=== PATIENT | male | born 1955 | race Caucasian/White ===

== ENCOUNTER → 2019-09-23 | Day surgery (SDC) | payer BC, OTHER ==
[~2019-09-23] VITALS: Ht 195.6 cm; Wt 88.0 kg
[~2019-09-23] MED LIST: NORCO 5-325 TA1 EAC1 PO
--- NOTE | ~2019-09-23 | O ---
[facility] [place] [address] OPERATIVE REPORT Name: RAÚL ELDRIDGE Room #: [facility]..#: [id number] Admission: 09/23/19 Attend Phys: Forrest Cage MD Discharge: Date of : 53 Report #: [id number] THIS REPORT FOR: //name// CC: Cayetano Cage DATE OF SERVICE: 09/23/2019 PATIENT OF: Dr. Forrest Cgae and Dr. Cayetano Holland Jr. PREOPERATIVE DIAGNOSIS: Right inguinal hernia. POSTOPERATIVE DIAGNOSES: Right inguinal hernia with a right femoral hernia. PROCEDURE: Right inguinal hernia repair with Prolene hernia system mesh and repair of a right femoral hernia with a Bard mesh PerFix plug. SURGEON: Forrest Cage M.D. ANESTHESIA: Local IV sedation. DESCRIPTION OF PROCEDURE: The patient was brought to the operating room and placed on operative table in the supine position. Sequential compression devices were in place for DVT prophylaxis. There was no indication for preoperative antibiotics. The patient underwent IV sedation and the right inguinal area was prepped and draped in a sterile fashion. Skin and subcutaneous tissue overlying the right inguinal area was infiltrated with 0.5% Marcaine and 1% Xylocaine with epinephrine. Right inguinal skin incision was then performed using #10 scalpel blade. Hemostasis obtained using electrocautery as well as clamps and 2-0 chromic ties. Dissection was carried down through subcutaneous tissue, the external oblique fascia, which was then incised with a knife, opened with Metzenbaum scissors. The cord was then elevated and held in place with a [place] drain. Cremasteric muscle fibers were then split in the direction of their fibers using a clamp and electrocautery. There was no evidence of any indirect inguinal hernia sac. The floor was noted to be markedly weakened representing a direct inguinal hernia defect and the internal ring was markedly widened as well. An extended Prolene hernia system mesh was then inserted through the internal ring and the underlay patch was then deployed into the preperitoneal space. The floor was then tightened over the mesh using a running 2-0 Prolene two layer Shouldice repair. The overlay patch was then deployed into the inguinal canal and secured the pubic tubercle with the same running 2-0 Prolene suture. The mesh was also secured superiorly and at the connector using simple interrupted 2-0 Vicryl sutures. The mesh was then split and wrapped around the cord, secured to the inguinal ligament in 2 places with simple interrupted 2-0 Vicryl suture. The cord was then returned to the [address] [address] OPERATIVE REPORT Name: RAÚL ELDRIDGE Room #: REG [facility].#: [id number] Admission: 09/23/19 Attend Phys: Forrest Cage MD Discharge: Date of : 53 Report #: [id number] canal intact. The external oblique fascia was then closed using a running 2-0 Vicryl suture. There was also noted to be a bulge in the right femoral area as well and that area was explored and a right femoral hernia with some incarcerated preperitoneal fat was identified. This incarcerated fat was dissected free and reduced back through the femoral canal revealing a femoral hernia. A medium Marlex PerFix plug with some of the petals removed was placed in the defect and secured superiorly, medially and inferiorly with simple interrupted 2-0 Prolene sutures. The subcutaneous tissue and Elina's fascia was then reapproximated using simple interrupted 2-0 chromic sutures and the skin then closed with a running 4-0 subcuticular Vicryl stitch. The wound was then dressed with Mastisol, 1/2-inch Steri-Strips cut in half, Telfa, 4 x 4 gauze, sponge and tape. The patient was then awakened from the IV sedation, taken to the recovery room awake, alert, in good condition. Estimated blood loss was approximately 5 mL and the patient tolerated procedure well. All sponge, lap and instrument counts correct x 2. By: 1544 1736 Forrest Cage MD /nt
[2019-09-23 14:13] VITALS: BP 129/64
--- NOTE | 2019-09-23 15:47 | H ---
[facility] [place] [place] [address] HISTORY AND PHYSICAL Name: RAÚL ELDRIDGE Room #: REG [facility]..#: [id number] Admission: 09/23/19 Attend Phys: Forrest Cage MD Discharge: Date of : 53 Report #: [id number] THIS REPORT FOR: //name// CC: CAYDEN Groves MD DATE OF SERVICE: 09/23/2019 PATIENT OF: Dr. Forrest Cage, Dr. Cayden Holland Jr, Dr. Geoff Groves. DATE OF SURGERY: 09/23/2019. CHIEF COMPLAINT: Right groin bulge. HISTORY OF PRESENT ILLNESS: The patient is a 64-year-old white male who several months ago started noticing a bulge on the right groin. He had left inguinal hernia repair by Dr. Tripp Mata approximately 10 years ago. He denies any pain. No recent changes in bowel or bladder habits. He saw his primary care physician, Dr. Cayden Holland Jr. who recommended surgical consultation. PAST MEDICAL HISTORY: Right inguinal hernia repair in 2009. MEDICATIONS: None. ALLERGIES: PENICILLIN. FAMILY HISTORY: Noncontributory. SOCIAL HISTORY: , does not smoke, drinks alcohol occasionally. He is an tax attorney. REVIEW OF SYSTEMS: Pertinent positives as above. Full review of systems is otherwise negative. PHYSICAL EXAMINATION: GENERAL: Well-developed, well-nourished white male, in no acute distress. VITAL SIGNS: Stable. He is afebrile. Height is 76 inches, weight is 198 pounds, BMI of 24.1. HEENT: Sclerae are nonicteric. Mucous membranes moist and pink. NECK: There is no adenopathy, no thyromegaly. LUNGS: Clear to auscultation bilaterally. Normal excursion. CARDIOVASCULAR: Regular rate and rhythm. No murmurs, S3, S4. No PMI. ABDOMEN: Soft, flat and nontender. No palpable masses. No organomegaly. No abdominal wall hernias. [facility] [place] [address] HISTORY AND PHYSICAL Name: RAÚL ELDRIDGE MARIVEL Room #: [facility]..#: [id number] Admission: 09/23/19 Attend Phys: Forrest Cage MD Discharge: Date of : 53 Report #: [id number] GENITOURINARY: Normal scrotum, phallus and testes. There is a healed left inguinal incision scar. There is a small to moderate sized reducible nontender right inguinal hernia. EXTREMITIES: No clubbing, cyanosis or edema. NEUROLOGIC: Intact with a clear mental status. IMPRESSION: A 64-year-old white male with a right inguinal hernia. I fully discussed with the patient the diagnosis, prognosis and treatment options, the risks and benefits of each. He states he understands and agrees to proposed surgery. PLAN: We will perform right inguinal hernia repair under local IV sedation as an outpatient at [facility]. The procedure, its risks, benefits and possible complications including use of mesh were fully discussed with the patient. He states he understands and agrees to proposed surgery. <ELECTRONICALLY SIGNED> By: Forrest Cage MD 09/23/19 1547 [id number] Forrest Cage MD /nt
[2019-09-23 16:10] VITALS: BP 129/64
== END | disposition home or self-care (01) ==
LOC: OR 06:35
DX: K40.90 Unilateral inguinal hernia, without obstruction or gangrene, not specified as recurrent (principal); K41.90 Unilateral femoral hernia, without obstruction or gangrene, not specified as recurrent; Z98.890 Other specified postprocedural states; Z88.0 Allergy status to penicillin
CPT/HCPCS: 50010; 50101; 50386; 50417; 54111; 54117; 56524; 56525; 56526; 56528; 62110; 62850; 70005

== ENCOUNTER → 2020-10-16 | Outpatient (CLI) | payer BC, OTHER | LOC: ULTRA 13:36 | PROVIDERS: ATTEND Orthopaedic Surgery | DX: M79.662 Pain in left lower leg (principal); M25.562 Pain in left knee ==